=== PATIENT | male | born 1950 | race Caucasian/White ===

== ENCOUNTER 2018-09-24 10:19 | Inpatient (IN) | payer OTHER ==
[~2018-09-24] VITALS: Ht 175.3 cm; Wt 129.8 kg
[~2018-09-24 10:19] MED LIST: ALLOPURINOL 30300 M1 PO; DIOVAN HCT 3201 EAC1 PO; GLUCOPHAGE1000 MG PO; LASIX 20 MG TAB20 MG PO; LIPITOR20 MG PO; ONGLYZA5 MG PO; PRISTIQ50 MG PO
[2018-09-24 10:20] VITALS: BP 104/39
[2018-09-24 10:50] LABS: URINE BILIRUBIN NEGATIVE (Negative); URINE BLOOD NEGATIVE (Negative); URINE CLARITY CLEAR; URINE COLOR YELLOW; URINE GLUCOSE-RANDOM* NEGATIVE (Negative); URINE KETONES NEGATIVE (Negative); URINE LEUKOCYTES-REFLEX NEGATIVE (Negative); URINE NITRITE-REFLEX NEGATIVE (Negative); URINE PROTEIN (DIPSTICK) NEGATIVE (Negative); URINE UROBILINOGEN 0.2 E.U./dl (0.2-1.0)
[2018-09-24 10:56] LABS: ABSOLUTE NEUTROPHILS 7.8 thou/uL (1.4-8.2); BASOPHILS 0.1 % (0.0-2.0); EOSINOPHILS 0.4 % (0.0-3.0); HEMATOCRIT 36.3 % (42.0-52.0); HEMOGLOBIN 12.4 gm/dL (14.0-18.0); MCH 31.6 pg (26.0-34.0); MCHC 34.3 g/dL (28.0-37.0); MCV 92.2 fL (80.0-100.0); MONOCYTES 8.7 % (1.0-8.0); PLATELET COUNT 153 thou/uL (150-400); POLYS 86.8 % (36.0-66.0); RBC 3.94 mil/uL (4.50-6.00); RDW 14.5 % (10.5-14.5)
[2018-09-24 11:11] LABS: CALCIUM 9.4 mg/dL (8.5-10.1); CREATININE 2.9 mg/dL (0.7-1.3); POTASSIUM 4.8 mmol/L (3.5-5.1)
[2018-09-24 11:15] LABS: ALBUMIN 3.3 g/dL (3.4-5.0); TOTAL BILIRUBIN 1.3 mg/dL (<0.1-1.0); TOTAL PROTEIN 7.1 g/dL (6.4-8.2)
[2018-09-24 16:00] VITALS: BP 127/63
[2018-09-24 18:00] VITALS: BP 122/81
[2018-09-24 20:35] VITALS: BP 122/81
[2018-09-24 21:00] VITALS: BP 142/68
[2018-09-25] VITALS: BP 140/68
--- NOTE | 2018-09-25 01:40 | NUR ---
ADMISSION NOTE: PT WAS ADMITTED TO THIS UNIT AT APPROXIMATELY 2030. PT IS ALERT AND ORIENT TIMES TWO-THREE. PT IS VERY IMPULSIVE AND WILL GET OOB WITHOUT USING CALL BUTTON. PT HAS BEEN ORIENTED TO CALL BUTTON AND WHICH BUTTON TO CALL FOR HELP FROM THE NURSE. PT GOT OOB AND PULLED OUT HIS IV IN ATTEMPTS TO USE THE TOILET. PT IS A LITTLE CONFUSED TO SITUATION AND TIME. SLOW TO RESPOND TO QUESTIONS AT TIMES. VSS, AFEBRILE. MS PT. ACCU CHECK WAS 198, 3 UNITS OF HUMALOG GIVEN. PT C/O PAIN IN LEFT GREAT TOE R/T AN IN GROWN NAIL. MYPLEX APPLIED FOR PROTECTION VT PT'S REQUEST. PT IS UP SBA, BUT NEEDS LOTS OF ENCOURAGEMENT TO RETURN TO BED, PT FINDS EVERY EXCUSE TO DELAY GETTING BACK TO BED. SLOW PROGRESS TOWARDS DC GOALS, WILL CONTINUE TO MONITOR.
[2018-09-25 05:10] LABS: ABSOLUTE NEUTROPHILS 7.6 thou/uL (1.4-8.2); BASOPHILS 0.2 % (0.0-2.0); EOSINOPHILS 0.4 % (0.0-3.0); HEMATOCRIT 34.9 % (42.0-52.0); HEMOGLOBIN 11.8 gm/dL (14.0-18.0); LYMPHOCYTES 5.3 % (24.0-44.0); MCH 31.5 pg (26.0-34.0); MCHC 33.8 g/dL (28.0-37.0); MCV 93.2 fL (80.0-100.0); MONOCYTES 8.4 % (1.0-8.0); PLATELET COUNT 145 thou/uL (150-400); POLYS 85.7 % (36.0-66.0); RBC 3.74 mil/uL (4.50-6.00); RDW 14.2 % (10.5-14.5); WBC 8.8 thou/uL (4.0-11.0)
[2018-09-25 05:21] LABS: CALCIUM 9.1 mg/dL (8.5-10.1); MAGNESIUM 2.2 mg/dL (1.8-2.4)
[2018-09-25 05:23] LABS: CREATININE 1.8 mg/dL (0.7-1.3)
[2018-09-25 08:00] VITALS: BP 151/79
--- NOTE | 2018-09-25 10:55 | NUR ---
CM ASSESSMENT: CASE OPENED FOR DC PLANNING. CLINICAL INFO REVIEWED. MET WITH PT WHO IS ALERT ANDAORIENTED X4. PT ADMITS WITH NECK SWELLING/PAIN. LIVES IN HOUSE WITH SPOUSE AND WAS INDEPENDENT WITH ADLS/IADLS HATCH TENDER. NO PREVIOUS HH BUT SPOUSE IS CURRENT WITH [facility]. ON IV ABX. NO ANTICIPATED CM NEEDS AT DC.
[2018-09-25 12:00] VITALS: BP 158/91
[2018-09-25 15:37] VITALS: BP 147/89
[2018-09-25 16:47] VITALS: BP 171/83
--- NOTE | 2018-09-25 17:04 | NUR ---
ASSUMED CARE THIS AM. AWAKE AND ORIENTED TO SELF AND PLACE. REORIETED TO TIME. FACE SWELLING IS TO LEFT SIDE OF FACE AND NECK. PAIN 3/10 LONG IT IS NOT TOUCHED. SR ON MONITOR AND VSS. 0900: OOB TO CHAIR, VERY IMPULSIVE AND QUICK TO MOVE. USES URINAL WITH SOME DIFFICULTY. URGENCY TO URINATE AND SOMETIMES DOES NO MAKE IT IN TIME. 1530: REPORT GIVEN TO AMANDA PEPE. TRANSFERRED TO [facility] IN STABLE CONDITION
--- NOTE | 2018-09-25 18:19 | NUR ---
PT TRANSFERED FROM ICU TO FLOOR AT 1615 PER WC ACCOMPANIED BY HIS FAMILY IN STABLE CONDITION.C/O HEAD AND NECK PAIN. HYDROCODONE GIVEN ORDERED WITH RELIEF.BS AT DINNER WAS 248,INSULIN GIVEN ORDERED.PT UP TO BR WITH SBA.WILL CONTINUE TO MONITOR.
[2018-09-25 19:24] VITALS: BP 153/88
--- NOTE | 2018-09-25 23:25 | NUR ---
ASSESSMENT COMPLETED.PT ALERT AND ORIENTED X3.PT IMPULSIVE AND AT INCREASED RISK FOR FALL.FALL PRECAUTIONS INITIATED.PT WITH URGENCY,WAS NOTED URINATING ALL OVER THE FLOOR IN AN ATTEMPT TO USE THE URINAL.PT REQUESTED TO BE PUT BACK IN BED AND GOT UP IMMEDIATELY STATING THAT THE BED IS UNCOMFORTABLE FOR HIM.PT SEATIG UP IN THE RECLINER IN HIS RUFUS SLEEPING AT THIS TIME.AFEBRILE SO FAR.BG MONITORED,WAS 250,TX ORDERED.PT SLEEPING N THE RECLINER IN HIS ROOM AT THIS TIME.CHAIR ALARM IN PLACE.CALL LIGHT WITHIN REACH.
[2018-09-26 05:37] VITALS: BP 188/88
[2018-09-26 07:50] VITALS: BP 184/109
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
--- NOTE | 2018-09-26 10:49 | NUR ---
Assumed pt care at 7am.Assessment completed.vss.Pt tolerated meds and diet. Pt has been cooperative with care and follow directions until 10am.Dr Sylvester and Jeniffer here,order noted.Around 1010,pt pulled his piv and stated that he was tired of staying at the hospital and wanted to dc home today.Pt refused blood drawn for lab.Dr Sylvester notified and order received.Dr Grimaldo will be seen pt later today. will continue to monitor.
[2018-09-26 12:55] LABS: HEMATOCRIT 35.8 % (42.0-52.0); HEMOGLOBIN 12.2 gm/dL (14.0-18.0); MCH 31.2 pg (26.0-34.0); MCV 91.8 fL (80.0-100.0); RBC 3.9 mil/uL (4.50-6.00); RDW 14.1 % (10.5-14.5); WBC 10.4 thou/uL (4.0-11.0)
[2018-09-26 13:02] LABS: CALCIUM 9.1 mg/dL (8.5-10.1); CREATININE 1.5 mg/dL (0.7-1.3); POTASSIUM 3.8 mmol/L (3.5-5.1)
[2018-09-26 16:49] VITALS: BP 160/93
[2018-09-26 19:24] VITALS: BP 160/102
[2018-09-27 00:28] VITALS: BP 145/81
--- NOTE | 2018-09-27 02:40 | NUR ---
Assumed pt care at 1900. Pt alert to self,place and situation with confusion noted. Pt also very impulsive and keeps getting up without help stating he wants to call someone redirected several times it's night time he go to sleep easily. C/o left face/neck pain medicated per EMAR with relief reported. Pt voiding without difficulty,has urgency and will occ be incontinent. Fall precautions in place. Pt sleeping on the chair at this time,feet elevated with no problems noted. Will continue to monitor pt.
[2018-09-27 04:42] VITALS: BP 140/87
[2018-09-27 06:26] LABS: HEMOGLOBIN 11.3 gm/dL (14.0-18.0); MCH 31.3 pg (26.0-34.0); MCHC 34.4 g/dL (28.0-37.0); RBC 3.62 mil/uL (4.50-6.00); WBC 8.1 thou/uL (4.0-11.0)
[2018-09-27 06:38] LABS: CALCIUM 9.2 mg/dL (8.5-10.1); CREATININE 1.4 mg/dL (0.7-1.3); POTASSIUM 3.6 mmol/L (3.5-5.1)
[2018-09-27 08:25] VITALS: BP 145/76
--- NOTE | 2018-09-27 15:50 | NUR ---
PHYSICIAN INDICATED THAT PT WOULD BENEFIT FROM TRANSFER TO HOSPITAL WITH ORAL SURGERY. CM TRIED [facility] PER PT AND FAMILY'S REQUEST AND THEY DON'T HAVE ORAL SURGERY. CM CALLED [facility] AND THEY DON'T HAVE ORAL SURGERY. CM CALLED [facility] AND SPOKE WITH MARIAH IN TRANSFER CENTER. CM FAXED HER FACE SHEET AND COPY OF PT'S INSURANCE CARDS. CM CALLED [facility] AND LEFT [facility] FOR LONG IN TRANSFER CENTER AND HASN'T HEARD BACK FROM THEM. TRANSFER FORM WAS SIGNED AND THAT AND [facility] FORM PLACED ON CHART. CM TO FOLLOW INDICATED WITH DC PLANNING.
[2018-09-27 16:29] VITALS: BP 128/81
[2018-09-27 19:20] VITALS: BP 146/75
--- NOTE | 2018-09-27 20:10 | NUR ---
ASSUMED CARE OF PT AT 0700. ASSESSMENT CHARTED. ALERT TO PERSON, PLACE, AND SITUATION THIS AM. PT DROWSY, BUT AROUSABLE AND SLEPT IN CHAIR MOST OF THE DAY. PT MORE AWAKE AND A&O,X4 THIS EVENING. PAIN MEDS GIVEN ORDERED FOR LEFT JAW/NECK PAIN. LEFT SIDE NECK/JAW RED AND SWOLLEN. AND FAMILY VISITED THIS AFTERNOON. PLANNING ON TRANSFERRING PT FOR ORAL SURGERY INDICATED, NO ACCEPTING FACILITIES AT THIS TIME. NO OTHER CHANGE IN STATUS.
[2018-09-28 05:03] VITALS: BP 164/104
[2018-09-28 06:53] LABS: HEMATOCRIT 33.5 % (42.0-52.0); HEMOGLOBIN 11.3 gm/dL (14.0-18.0); MCH 31.1 pg (26.0-34.0); MCHC 33.9 g/dL (28.0-37.0); MCV 91.9 fL (80.0-100.0); RBC 3.65 mil/uL (4.50-6.00); RDW 14.1 % (10.5-14.5); WBC 7.2 thou/uL (4.0-11.0)
[2018-09-28 07:04] LABS: CALCIUM 9.3 mg/dL (8.5-10.1); CREATININE 1.4 mg/dL (0.7-1.3); MAGNESIUM 2.3 mg/dL (1.8-2.4); POTASSIUM 3.9 mmol/L (3.5-5.1)
[2018-09-28 08:00] VITALS: BP 145/75
[2018-09-28] MEDS ORDERED: VENLAFAXINE HCL75 M2 PO (13:35)
--- NOTE | 2018-09-28 14:04 | NUR ---
Nutrition: screen for BMI >40, no wt hx. Pt noted to have some confusion, pt nor family available for interview at this time. Nsg reported intake of 50% of breakfast, intake 50% at meals yesterday as well. Albumin 3.3, BUN 31, Cr 1.4. B-247. ENT consulted, possibility of transfer for oral surgery. Insulin and other meds reviewed. Will trial Glucerna BID. Pt at mild nutrition risk.
--- NOTE | 2018-09-28 15:20 | NUR ---
[facility] IS ABLE TO ACCEPT PT THIS DAY. PT IS TO BE ADMITTED TO HOSPITALIST DR. NATALY GRADY AND WILL BE SEEN BY ORAL SURGON DR. OMAYRA ARAUJO, PT WILL BE ADMITTING TO ROOM 523. PT AND SPOUSE ARE AWARE AND AGREEABLE. CHART COPY MADE. REPORT WAS CALLED TO . AMBULANCE TRANSPORT SET UP FOR 1545. NO OTHER CM INTERVENTION INDICATED. CASE CLOSED.
--- NOTE | 2018-09-28 16:46 | NUR ---
QUIET UNEVENTFUL DAY. SAT UP IN CHAIR ALL DAY. MAIN COMPLAINT LEFT FACIAL/NECK PAIN. HYDROCODONE GIVEN AND HELPFUL. TOLERATING DIET. MILD SWALLOWING DIFFUCLTY. TAKES SMALL BITES. SWALLOWED PILLS WITH APPLESAUCE. UP WITH STANDBY ASSIST TO BATHROOM AND TO USE URINAL. STILL WITH MARKED EDEMA TO LEFT FACE AND NECK. PATIENT STATED BRUSHING TEETH 3 TIMES A DAY WITH A SOFT TOOTHBRUSH. ORIENTATION IMPROVED TODAY, ALERT AND ORIENTED X 3. UNSURE OF MONTH AND YEAR. CT SCAN DONE. DR. MCCLELLAND CONSULTED. HOWEVER PATIENT HAS BEEN ACCEPTED AT [facility] BY AN ORAL SURGEON. TO BE ESCORTED BY AMBULANCE. FAMILY AT BEDSIDE. CALLED REPORT TO DANIEL AT [facility].
== END 2018-09-28 18:27 | disposition short-term general hospital (02) | DRG 871 ==
LOC: ER 10:19 → EROBS 13:01 → ICU 13:01 → 4E 09-25 16:29
PROVIDERS: Internal Medicine; Nurse Practitioner; Physician Assistant; ADMIT Hospitalist
DX: A41.9 Sepsis, unspecified organism (principal); G93.41 Metabolic encephalopathy; N17.9 Acute kidney failure, unspecified; L03.211 Cellulitis of face; A42.2 Cervicofacial actinomycosis; L02.01 Cutaneous abscess of face; Z68.41 Body mass index [BMI] 40.0-44.9, adult; M10.9 Gout, unspecified; K04.7 Periapical abscess without sinus; E86.0 Dehydration; E66.01 Morbid (severe) obesity due to excess calories; N18.9 Chronic kidney disease, unspecified; F32.9 Major depressive disorder, single episode, unspecified; I12.9 Hypertensive chronic kidney disease with stage 1 through stage 4 chronic kidney disease, or unspecified chronic kidney disease; R41.0 Disorientation, unspecified; F39 Unspecified mood [affective] disorder; E11.22 Type 2 diabetes mellitus with diabetic chronic kidney disease; Z79.899 Other long term (current) drug therapy
CPT/HCPCS: 10196; 10783